=== PATIENT | female | born 1960 | race African-American/Black ===

== ENCOUNTER 2016-12-20 07:46 | Emergency (ER) | payer MEDICAID ==
[~2016-12-20] VITALS: Ht 172.7 cm; Wt 72.6 kg
[~2016-12-20 07:46] MED LIST: BACL10TA PO; HYDR-548 PO
[2016-12-20 07:54] VITALS: BP 126/92
[2016-12-20] MEDS ORDERED: ONDANSETRON 4 MG TAB.RAPDIS ONE (08:06)
[2016-12-20] MEDS ORDERED: HYDROCODONE/APAP 10/325MG 1 EA TABLET ONE (08:07)
[2016-12-20] MEDS ORDERED: HYDROCODONE/APAP 10/325MG 1 EA TABLET PO ONE (08:30)
[2016-12-20] MEDS ORDERED: ONDANSETRON 4 MG TAB.RAPDIS SL ONE (08:30)
== END 2016-12-20 08:32 | disposition home or self-care (01) ==
LOC: EDBD → MERGE 07:49 → ER 07:49
DX: Z76.0 Encounter for issue of repeat prescription (principal); I10 Essential (primary) hypertension; C78.80 Secondary malignant neoplasm of unspecified digestive organ; F17.200 Nicotine dependence, unspecified, uncomplicated; Z88.6 Allergy status to analgesic agent; Z88.8 Allergy status to other drugs, medicaments and biological substances
CPT/HCPCS: A4606; Q0162; Z7610

== ENCOUNTER 2017-02-10 19:16 | Emergency (ER) | payer MEDICAID ==
[~2017-02-10] VITALS: Ht 172.7 cm; Wt 70.3 kg
--- NOTE | 2017-02-10 19:43 | NUR ---
PT [facility]BUALT[facility] TO ER BED 8 PT C/O ABD PAIN X 5 HOURS BUT DENIES N/V OR DIARRHEA. 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 PT AOX4 RR EVEN AND UNLABORED. NO SOB NOTED. NAD NOTED. NO NVD AT THIS TIME. PT GOWNED AND PLACED ON MONITOR. WAITING FOR MD ORTIZ.
--- NOTE | 2017-02-10 19:48 | NUR ---
DR. GALLEGOS AT BEDSIDE FOR EVAL.
[2017-02-10] MEDS ORDERED: HYDROMORPHONE 1 MG/1 ML DISP.SYRIN ONE (19:51)
[2017-02-10] MEDS: HYDROMORPHONE INJ 2 MG/ML DISP.SYRIN IM ONE (19:58)
--- NOTE | 2017-02-10 19:58 | NUR ---
LAB AT BEDSIDE FOR BLOOD DRAW.
--- NOTE | 2017-02-10 20:18 | NUR ---
XRAY AT BEDSIDE
[2017-02-10 20:19] LABS: BASOPHILS % (AUTO) 0.6 % (0.0-2.0); EOSINOPHILS # (AUTO) 0.1 /CMM (0.0-0.7); EOSINOPHILS % (AUTO) 2.4 % (0.0-6.0); HEMATOCRIT 38 % (33-45); HEMOGLOBIN 12.4 g/dL (11.5-14.8); LYMPHOCYTES # (AUTO) 1.6 /CMM (0.8-4.8); LYMPHOCYTES % (AUTO) 47.9 % (20.0-44.0); MEAN CORPUSCULAR HEMOGLOBIN 30 PG (26.0-33.0); MEAN CORPUSCULAR HGB CONC 33 g/dl (31.0-36.0); MEAN CORPUSCULAR VOLUME 92 fL (82-100); MONOCYTES # (AUTO) 0.3 /CMM (0.1-1.30); MONOCYTES % (AUTO) 9.6 % (2.0-12.0); NEUTROPHILS # (AUTO) 1.2 /CMM (1.8-8.9); NEUTROPHILS % (AUTO) 39.5 % (43.0-81.0); PLATELET COUNT (AUTO) 278 /CMM (150-450); RDW COEFFICIENT OF VARIATION 13.1 (11.5-15.0); RED BLOOD CELL COUNT(AUTO) 4.13 MIL/uL (4.0-5.2); WHITE BLOOD COUNT (AUTO) 3.2 K/uL (4.3-11.0)
[2017-02-10 21:02] LABS: CALCIUM, SERUM 9.3 mg/dL (8.5-10.1); CREATININE 0.7 mg/dL (0.6-1.3); POTASSIUM 3.8 mmol/L (3.5-5.1)
[2017-02-10 21:07] LABS: ALBUMIN 3.7 g/dL (3.4-5.0); BILIRUBIN,DIRECT 0.1 mg/dL (0.0-0.2); BILIRUBIN,TOTAL 0.4 mg/dL (0.2-1.0); TOTAL PROTEIN, SERUM 7.5 g/dL (6.4-8.2)
[2017-02-10 21:33] VITALS: BP 148/98
--- NOTE | 2017-02-10 21:33 | NUR ---
Patient discharged to home in stable condition. Written and verbal after care instructions given. Patient verbalizes understanding of instruction. ambulatory with a steady gait
== END 2017-02-10 21:34 | disposition home or self-care (01) ==
LOC: ER 19:20
DX: R10.13 Epigastric pain (principal); G89.29 Other chronic pain; F17.200 Nicotine dependence, unspecified, uncomplicated; C25.9 Malignant neoplasm of pancreas, unspecified; Z88.2 Allergy status to sulfonamides; Z88.8 Allergy status to other drugs, medicaments and biological substances; Z88.6 Allergy status to analgesic agent
CPT/HCPCS: 36415; 71010; 80048; 80076; 83690; 85025; 96372; 99285; A4606; J1170; Z7610

== ENCOUNTER 2017-05-02 08:55 | Emergency (ER) | payer MEDICAID ==
[~2017-05-02] VITALS: Ht 172.7 cm; Wt 68.9 kg
[2017-05-02 08:55] VITALS: BP 136/94
== END 2017-05-02 09:26 | disposition home or self-care (01) ==
LOC: ER 08:58
DX: Z76.0 Encounter for issue of repeat prescription (principal); M75.52 Bursitis of left shoulder; F17.200 Nicotine dependence, unspecified, uncomplicated; Z88.2 Allergy status to sulfonamides; Z88.6 Allergy status to analgesic agent; Z88.8 Allergy status to other drugs, medicaments and biological substances; Z85.41 Personal history of malignant neoplasm of cervix uteri
CPT/HCPCS: A4606; Z7610